=== PATIENT | female | born 1945 | race Caucasian/White ===

== ENCOUNTER → 2018-06-26 | Outpatient (CLI) | payer MEDICARE, OTHER ==
[~2018-06-26] MED LIST: ALBUTEROL2.5 MG/31 INH; ASPIR 8181 MG PO; EFFEXOR XR150 MG PO; LANTUS SUBQ; LISINOPRIL2.5 M1 PO; OXYGEN INH; VENTOLIN HFA 1818 GM INH
== END ==
LOC: M.MRI 14:16
DX: S83.231A Complex tear of medial meniscus, current injury, right knee, initial encounter (principal); M17.11 Unilateral primary osteoarthritis, right knee; X58.XXXA Exposure to other specified factors, initial encounter; Y93.89 Activity, other specified; Y92.89 Other specified places as the place of occurrence of the external cause; Y99.8 Other external cause status